=== PATIENT | male | born 1975 | race Caucasian/White ===

== ENCOUNTER 2017-03-29 22:44 | Emergency (ER) | payer MEDICAID ==
[2017-03-29 22:53] VITALS: BP 128/81
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
== END 2017-03-29 23:55 | disposition left against medical advice (07) ==
LOC: JP.ED 22:44
DX: T65.91XA Toxic effect of unspecified substance, accidental (unintentional), initial encounter (principal); F17.210 Nicotine dependence, cigarettes, uncomplicated
CPT/HCPCS: 99284

== ENCOUNTER 2018-12-19 21:22 | Emergency (ER) | payer SELFPAY ==
[2018-12-19 21:38] VITALS: BP 139/82; PULSE 82
[2018-12-19] MEDS ORDERED: HYDROmorphone 0.5 MG/0.5 ML Syringe IVPUSH ONE ×2 (21:51→22:52)
[2018-12-19] MEDS: Sodium Chloride 0.9% 10 ML Syringe FLUSH PRN ×2 (22:07→23:00)
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
[2018-12-19] MEDS ORDERED: Acetaminophen/oxyCODONE 325-10 MG Tab PO PRN (22:52)
[2018-12-19] MEDS ORDERED: Ketorolac 30 MG/ML SDV IVPUSH ONE (22:56)
--- NOTE | 2018-12-19 23:13 | CRLCR ---
Indication: Pain after fall Technique: Two views, 4 films Comparison: None Findings: Bones: Deformity of the lateral tibial plateau, partially included on the examination. Appearance is consistent with a plateau fracture. No femoral fracture seen. Joint spaces: Large knee effusion. Soft tissues: Mild anterior soft tissue swelling. Dictated by Dwight Liang MD @ Dec 19 2018 11:11PM Signed by Dr. Dwight Liang @ Dec 19 2018 11:12PM
--- NOTE | 2018-12-19 23:22 | CRLCR ---
Indication: Injury and pain Technique: Right knee 4 views Comparison: None Findings/Impression: Bones: Minimally depressed fracture is in the lateral tibial plateau. No other fracture or malalignment. Joint spaces: Traumatic joint effusion is present. Soft tissues: Unremarkable. Dictated by Andrea Ott MD @ Dec 19 2018 11:18PM Signed by Dr. Andrea Ott @ Dec 19 2018 11:20PM
== END 2018-12-19 23:58 | disposition home or self-care (01) ==
LOC: JP.ED 21:22
DX: S82.141A Displaced bicondylar fracture of right tibia, initial encounter for closed fracture (principal); F17.210 Nicotine dependence, cigarettes, uncomplicated; V86.39XA Unspecified occupant of other special all-terrain or other off-road motor vehicle injured in traffic accident, initial encounter
CPT/HCPCS: 73552; 73564; 96374; 96375; 96376; 99283; 99284; A9270; J1170; J1885

== ENCOUNTER 2019-01-31 12:29 | Emergency (ER) | payer MEDICAID, OTHER ==
[2019-01-31] MEDS ORDERED: Sodium Chloride 0.9% 10 ML Syringe FLUSH PRN (12:45)
[2019-01-31] MEDS ORDERED: Sodium Chloride 0.9% 1,000 ML IV ONE ×2 (12:46→13:34)
[2019-01-31] MEDS ORDERED: HYDROmorphone 0.5 MG/0.5 ML Syringe IVPUSH ONE (12:46)
[2019-01-31] MEDS ORDERED: Acetaminophen 325 MG Tab PO ONE (13:15)
[2019-01-31] MEDS ORDERED: cefTRIAXone 2 GM in Sodium Chloride 0.9% 50 ML IV ONE (13:16)
[2019-01-31] MEDS ORDERED: HYDROmorphone 1 MG/ML Syringe IVPUSH ONE (13:39)
--- NOTE | 2019-01-31 13:50 | EDM.PDOC ---
ED HPI GENERAL MEDICAL PROBLEM - General Chief Complaint: Lower Extremity Injury/Pain Stated Complaint: R LEG PAIN AND SWELLING Time Seen by Provider: 01/31/19 12:30 Source of Information: Reports: Patient History Limitations: Reports: No Limitations - History of Present Illness INITIAL COMMENTS - FREE TEXT/NARRATIVE: Keanu is a 43 year old male who presents to the ED today with c/o right knee pain, swelling and redness/warmth since this morning. Patient had a tibial plateau fracture that was repaired by ortho at [facility] a couple of weeks ago. Patient reports he has been doing fine until this morning. Patient arrives here moaning in pain, febrile and tachycardic. He is not currently on any antibiotics and took Ibuprofen last a few hours ago which did not help with his symptoms, any manipulation of his knee or ambulation causes significant pain. Onset: Today, Sudden Right Lower Leg Pain Score (Numeric/FACES): 10 - Related Data Allergies Allergy/AdvReac Type Severity Reaction Status Date / Time No Known Allergies Allergy Verified 01/31/19 13:35 Home Meds: Home Meds Naproxen [Naprosyn] 500 mg PO Q8HR PRN 5 Days #30 tablet 12/19/18 [Rx] Hydrocodone/Acetaminophen [Hydrocodon-Acetaminophen 5-325] 1 tab PO Q6H PRN [History] Past Medical History Cardiovascular History: Reports: Arrhythmia Genitourinary History: Reports: Renal Calculus Musculoskeletal History: Reports: Fracture Psychiatric History: Reports: Anxiety, Depression Endocrine/Metabolic History: Reports: Obesity/BMI 30+ - Infectious Disease History Infectious Disease History: Reports: Chicken Pox - Past Surgical History Musculoskeletal Surgical History: Reports: ORIF, Other (See Below) Other Musculoskeletal Surgeries/Procedures:: right foot surgery. left 1st finger Social & Family History - Tobacco Use Smoking Status *Q: Current Every Day Smoker Years of Tobacco use: 26 Packs/Tins Daily: 1 - Caffeine Use Caffeine Use: Reports: None - Recreational Drug Use Recreational Drug Use: No Review of Systems - Review of Systems Review Of Systems: ROS reveals no pertinent complaints other than HPI. ED EXAM, GENERAL - Physical Exam Exam: See Below Exam Limited By: No Limitations General Appearance: Alert, WD/WN, Moderate Distress Eye Exam: Bilateral Eye: EOMI Ears: Normal External Exam Nose: Normal Inspection Throat/Mouth: Normal Oropharynx Head: Atraumatic Neck: Normal Inspection Respiratory/Chest: No Respiratory Distress, Lungs Clear Cardiovascular: Normal Peripheral Pulses, Tachycardia Peripheral Pulses: 2+: Dorsalis Pedis (L), Dorsalis Pedis (R) GI/Abdominal: Normal Bowel Sounds, Soft Back Exam: Normal Inspection Extremities: Other (Right knee incision healing well, surrounding swelling, distal erythema and warmth around anterior knee, signficantly painful to touch, distal pulses and cap refill intact, no signs of compartment syndrome at this time.) Neurological: Alert, Oriented, CN II-XII Intact Psychiatric: Anxious Skin Exam: Erythema (right knee), Increased Warmth, Other Lymphatic: No Adenopathy Course - Vital Signs Last Recorded V/S: Last Vital Signs Temp 38.2 C H 01/31/19 13:11 Pulse 113 H 01/31/19 13:51 Resp 16 01/31/19 13:51 BP 144/64 H 01/31/19 13:51 Pulse Ox 94 L 01/31/19 13:51 Keanu is a 43 year old male, recent hx of Tibial Plateau Fracture repair at [facility], presents with significant pain, swelling, erythema to right knee that he noticed upon waking this morning. Please refer to HPI and focused exam. Patient arrives here tachycardic, febrile, significant pain on exam. Concern for hardware/joint infection and sepsis. No signs of compartment syndrome. Patient was given IV fluids, Dilaudid for pain. Blood work obtained including a set of blood cultures. Patient given Tylenol for his fever, blood work returns significant for a white count of 21.2, left shift, lactic acid of 3.1, gap of 15.7, alk phos of 117 and CRP of 2.77. Patient given 2 liters of NS and started on Rocephin and Vancomycin. I spoke with Dr. Calvert at [facility], hospitalist, as well as ortho, Dr. Sommers who have accepted patient for transfer. Patient will be started out in the ED. To remain NPO for now. Patient updated on results and plan of care and is agreeable, transferred in stable condition. - Orders/Labs/Meds Orders: Active Orders 24 hr Category Date Time Status Peripheral IV Care [RC] . DIRECTED Care 01/31/19 12:45 Active CULTURE BLOOD [BC] Urgent Lab 01/31/19 12:50 Received CULTURE BLOOD [BC] Urgent Lab 01/31/19 12:55 Received Sodium Chloride 0.9% [Normal Saline] 1,000 ml Med 01/31/19 13:34 Active IV .BOLUS Sodium Chloride 0.9% [Saline Flush] Med 01/31/19 12:45 Active 10 ml FLUSH ASDIRECTED PRN Vancomycin 2 gm Med 01/31/19 14:00 Active Sodium Chloride 0.9% [Normal Saline] 500 ml IV ONETIME fentaNYL [Sublimaze] Med 01/31/19 14:09 Once 50 mcg IVPUSH ONETIME ONE Blood Culture x2 Reflex Set [OM.PC] Urgent Oth 01/31/19 12:45 Ordered Peripheral IV Insertion Adult [OM.PC] Routine Oth 01/31/19 12:45 Ordered Medication Orders Sodium Chloride (Normal Saline) 1,000 mls @ 999 mls/hr IV .BOLUS ONE Stop: 01/31/19 14:34 Vancomycin HCl 2 gm/ Sodium (Chloride) 500 mls @ 250 mls/hr IV ONETIME ONE Stop: 01/31/19 15:59 Sodium Chloride (Saline Flush) 10 ml FLUSH ASDIRECTED PRN PRN Reason: Keep Vein Open Last Admin: 01/31/19 13:06 Dose: 10 ml Labs: Laboratory Tests 01/31/19 01/31/19 01/31/19 Range/Units 12:45 12:50 12:50 WBC 21.1 H (4.5-11.0) K/uL RBC 5.05 (4.30-5.90) M/uL Hgb 15.5 H (12.0-15.0) g/dL Hct 45.8 (40.0-54.0) % MCV 91 (80-98) fL MCH 31 (27-31) pg MCHC 34 (32-36) % Plt Count 334 (150-400) K/uL Neut % (Auto) 84 H (36-66) % Lymph % (Auto) 10 L (24-44) % Emmons % (Auto) 6 (2-6) % Eos % (Auto) 1 L (2-4) % Baso % (Auto) 0 (0-1) % Sodium 137 L (140-148) mmol/L Potassium 3.7 (3.6-5.2) mmol/L Chloride 101 (100-108) mmol/L Carbon Dioxide 24 (21-32) mmol/L Anion Gap 15.7 H (5.0-14.0) mmol/L BUN 9 (7-18) mg/dL Creatinine 0.8 (0.8-1.3) mg/dL Est Cr Clr Drug Dosing 125.50 mL/min Estimated GFR (MDRD) > 60 (>60) Glucose 95 (74-106) mg/dL Lactic Acid 3.1 H (0.4-2.0) mmol/L Calcium 9.2 (8.5-10.1) mg/dL Total Bilirubin 0.5 (0.2-1.0) mg/dL AST 12 L (15-37) U/L ALT 23 (12-78) U/L Alkaline Phosphatase 117 H (46-116) U/L C-Reactive Protein (0.0-0.3) mg/dL Total Protein 7.5 (6.4-8.2) g/dL Albumin 4.0 (3.4-5.0) g/dL Globulin 3.5 (2.3-3.5) g/dL Albumin/Globulin Ratio 1.1 L (1.2-2.2) 01/31/19 Range/Units 12:50 WBC (4.5-11.0) K/uL RBC (4.30-5.90) M/uL Hgb (12.0-15.0) g/dL Hct (40.0-54.0) % MCV (80-98) fL MCH (27-31) pg MCHC (32-36) % Plt Count (150-400) K/uL Neut % (Auto) (36-66) % Lymph % (Auto) (24-44) % Emmons % (Auto) (2-6) % Eos % (Auto) (2-4) % Baso % (Auto) (0-1) % Sodium (140-148) mmol/L Potassium (3.6-5.2) mmol/L Chloride (100-108) mmol/L Carbon Dioxide (21-32) mmol/L Anion Gap (5.0-14.0) mmol/L BUN (7-18) mg/dL Creatinine (0.8-1.3) mg/dL Est Cr Clr Drug Dosing mL/min Estimated GFR (MDRD) (>60) Glucose (74-106) mg/dL Lactic Acid (0.4-2.0) mmol/L Calcium (8.5-10.1) mg/dL Total Bilirubin (0.2-1.0) mg/dL AST (15-37) U/L ALT (12-78) U/L Alkaline Phosphatase (46-116) U/L C-Reactive Protein 2.77 H (0.0-0.3) mg/dL Total Protein (6.4-8.2) g/dL Albumin (3.4-5.0) g/dL Globulin (2.3-3.5) g/dL Albumin/Globulin Ratio (1.2-2.2) Meds: Medications Generic Name Dose Route Start Last Admin Trade Name Freq PRN Reason Stop Dose Admin Sodium Chloride 1,000 mls @ 999 mls/hr 01/31/19 13:34 Normal Saline IV 01/31/19 14:34 .BOLUS ONE Vancomycin HCl 2 gm/ Sodium 500 mls @ 250 mls/hr 01/31/19 14:00 Chloride IV 01/31/19 15:59 ONETIME ONE Sodium Chloride 10 ml 01/31/19 12:45 01/31/19 13:06 Saline Flush FLUSH 10 ml ASDIRECTED PRN Administration Keep Vein Open Discontinued Medications Generic Name Dose Route Start Last Admin Trade Name Freq PRN Reason Stop Dose Admin Acetaminophen 650 mg 01/31/19 13:15 01/31/19 13:34 Tylenol PO 01/31/19 13:16 650 mg NOW ONE Administration Hydromorphone HCl 0.5 mg 01/31/19 12:46 01/31/19 13:03 Dilaudid IVPUSH 01/31/19 12:47 0.5 mg ONETIME ONE Administration Hydromorphone HCl 1 mg 01/31/19 13:39 01/31/19 13:47 Dilaudid IVPUSH 01/31/19 13:40 1 mg ONETIME ONE Administration Sodium Chloride 1,000 mls @ 999 mls/hr 01/31/19 12:46 01/31/19 13:00 Normal Saline IV 01/31/19 13:46 999 mls/hr .BOLUS ONE Administration Ceftriaxone Sodium 2 gm/ 50 mls @ 100 mls/hr 01/31/19 13:16 10/21/19 13:34 Sodium Chloride IV 01/31/19 13:45 100 mls/hr ONETIME ONE Administration Vancomycin HCl 0 gm 01/31/19 14:00 Vancomycin IV 01/31/19 14:01 .PHARMACY TO DOSE MATTHEW Departure - Departure Time of Disposition: 15:00 Disposition: DC/Tfer to Acute Hospital 02 Condition: Serious Clinical Impression: Infection of knee Sepsis Qualifiers: Sepsis type: sepsis due to unspecified organism Sepsis acute organ dysfunction status: without acute organ dysfunction Qualified Code(s): A41.9 - Sepsis, unspecified organism - Discharge Information Referrals: PCP,None [Primary Care Provider] - Forms: ED Department Discharge - My Orders Last 24 Hours: My Active Orders 01/31/19 12:45 Peripheral IV Care [RC] . DIRECTED Sodium Chloride 0.9% [Saline Flush] 10 ml FLUSH ASDIRECTED PRN Blood Culture x2 Reflex Set [OM.PC] Urgent Peripheral IV Insertion Adult [OM.PC] Routine 01/31/19 12:50 CULTURE BLOOD [BC] Urgent 01/31/19 12:55 CULTURE BLOOD [BC] Urgent 01/31/19 13:34 Sodium Chloride 0.9% [Normal Saline] 1,000 ml IV .BOLUS 01/31/19 14:00 Vancomycin 2 gm Sodium Chloride 0.9% [Normal Saline] 500 ml IV ONETIME 01/31/19 14:09 fentaNYL [Sublimaze] 50 mcg IVPUSH ONETIME ONE - Assessment/Plan Last 24 Hours: My Active Orders 01/31/19 12:45 Peripheral IV Care [RC] . DIRECTED Sodium Chloride 0.9% [Saline Flush] 10 ml FLUSH ASDIRECTED PRN Blood Culture x2 Reflex Set [OM.PC] Urgent Peripheral IV Insertion Adult [OM.PC] Routine 01/31/19 12:50 CULTURE BLOOD [BC] Urgent 01/31/19 12:55 CULTURE BLOOD [BC] Urgent 01/31/19 13:34 Sodium Chloride 0.9% [Normal Saline] 1,000 ml IV .BOLUS 01/31/19 14:00 Vancomycin 2 gm Sodium Chloride 0.9% [Normal Saline] 500 ml IV ONETIME 01/31/19 14:09 fentaNYL [Sublimaze] 50 mcg IVPUSH ONETIME ONE
[2019-01-31 13:52] VITALS: BP 144/64; PULSE 113
[2019-01-31] MEDS ORDERED: Vancomycin 1 GM SDV IV SCH (14:00)
[2019-01-31] MEDS ORDERED: Vancomycin 2 GM in Sodium Chloride 0.9% 500 ML IV ONE (14:00)
[2019-01-31] MEDS ORDERED: fentaNYL 100 MCG/2 ML SDV IVPUSH ONE (14:09)
== END 2019-01-31 14:45 ==
LOC: JP.ED 12:29
DX: A41.9 Sepsis, unspecified organism (principal); M00.9 Pyogenic arthritis, unspecified; E66.9 Obesity, unspecified; F17.210 Nicotine dependence, cigarettes, uncomplicated; Z68.32 Body mass index [BMI] 32.0-32.9, adult
CPT/HCPCS: 36415; 80053; 83605; 85025; 86140; 87040; 96361; 96365; 96367; 96375; 96376; 99284; A9270; J0696; J1170; J3010; J3370; J7030; J7040; J7050

== ENCOUNTER 2019-02-10 11:31 | Emergency (ER) | payer MEDICAID, OTHER ==
[2019-02-10 11:56] VITALS: BP 116/67; PULSE 117
[2019-02-10] MEDS ORDERED: fentaNYL 100 MCG/2 ML SDV IVPUSH ONE (12:28)
--- NOTE | 2019-02-10 12:29 | EDM.PDOC ---
ED HPI GENERAL MEDICAL PROBLEM - General Chief Complaint: General Stated Complaint: PIC LINE ISSUES Time Seen by Provider: 02/10/19 12:00 Source of Information: Reports: Patient History Limitations: Reports: No Limitations - History of Present Illness INITIAL COMMENTS - FREE TEXT/NARRATIVE: 43-year-old male who was recently discharged from the hospital after incision and drainage of an infected postoperative right knee, had been doing well as an outpatient receiving IV Rocephin which she gives himself at home. Today he went into the clinic for a PICC line dressing change, and was found to have a low- grade fever. He felt chilled and was vomiting most of the night, orthopedics was consulted and he was sent to the emergency room for further evaluation. On arrival his temperature was 100.3, his nausea was improved but he had increased pain in his knee and he felt weak. Onset: Gradual (Over the past 12-24 hours) Associated Symptoms: Reports: Fever/Chills, Nausea/Vomiting, Weakness, Other ( Right knee pain has increased, but swelling has gone down) Right Knee Pain Score (Numeric/FACES): 8 - Related Data Allergies Allergy/AdvReac Type Severity Reaction Status Date / Time No Known Allergies Allergy Verified 02/10/19 11:52 Home Meds: Home Meds Hydrocodone/Acetaminophen [Hydrocodon-Acetaminophen 5-325] 1 tab PO Q6H PRN [History] Past Medical History Cardiovascular History: Reports: Arrhythmia Genitourinary History: Reports: Renal Calculus Musculoskeletal History: Reports: Arthritis, Fracture Neurological History: Reports: Concussion Psychiatric History: Reports: Anxiety, Depression, PTSD Endocrine/Metabolic History: Reports: Obesity/BMI 30+ - Infectious Disease History Infectious Disease History: Reports: Chicken Pox - Past Surgical History Head Surgeries/Procedures: Reports: None Cardiovascular Surgical History: Reports: None Endocrine Surgical History: Reports: None Neurological Surgical History: Reports: None Musculoskeletal Surgical History: Reports: ORIF, Other (See Below) Other Musculoskeletal Surgeries/Procedures:: right foot surgery. left 1st finger. tib/plat surgery has screws Dermatological Surgical History: Reports: None Social & Family History - Tobacco Use Smoking Status *Q: Current Every Day Smoker Years of Tobacco use: 25 Packs/Tins Daily: 1 Used Tobacco, but Quit: No Second Hand Smoke Exposure: Yes - Caffeine Use Caffeine Use: Reports: Coffee - Recreational Drug Use Recreational Drug Use: No ED ROS GENERAL - Review of Systems Review Of Systems: See Below Constitutional: Reports: Fever, Chills, Malaise HEENT: Reports: No Symptoms Respiratory: Denies: Shortness of Breath Cardiovascular: Denies: Chest Pain GI/Abdominal: Reports: Nausea, Vomiting. Denies: Abdominal Pain, Diarrhea : Reports: No Symptoms Musculoskeletal: Reports: Other (Increased right leg pain) Skin: Reports: Other (No erythema around the incisions) ED EXAM, GENERAL - Physical Exam Exam: See Below Exam Limited By: No Limitations General Appearance: Alert, No Apparent Distress, Other (Patient looks uncomfortable but not distressed) Eye Exam: Bilateral Eye: Normal Inspection (No jaundice) Head: Atraumatic Respiratory/Chest: No Respiratory Distress, Lungs Clear Cardiovascular: Regular Rate, Rhythm, Tachycardia GI/Abdominal: Non-Tender Extremities: Other (Recent surgery on the right knee reveals a small amount of swelling, healing incisions and some tenderness to palpation around the knee, it is not significantly warm or erythematous) Neurological: Alert, Oriented Skin Exam: Warm, Dry (Surgical incisions on the right knee look like they're healing appropriately. There is a very tiny area of granulomatous tissue coming through the incision, no other sign of drainage or abnormality) Course - Vital Signs Last Recorded V/S: Last Vital Signs Temp 101.6 F H 02/10/19 12:55 Pulse 117 H 02/10/19 11:54 Resp 16 02/10/19 11:54 BP 116/67 02/10/19 11:54 Pulse Ox 98 02/10/19 11:54 - Orders/Labs/Meds Orders: Active Orders 24 hr Category Date Time Status CULTURE BLOOD [BC] Urgent Lab 02/10/19 12:20 Received CULTURE BLOOD [BC] Urgent Lab 02/10/19 12:25 Received Blood Culture x2 Reflex Set [OM.PC] Urgent Oth 02/10/19 12:09 Ordered Labs: Laboratory Tests 02/10/19 02/10/19 02/10/19 Range/Units 12:20 12:20 13:05 WBC 10.2 (4.5-11.0) K/uL RBC 4.23 L (4.30-5.90) M/uL Hgb 13.0 D (12.0-15.0) g/dL Hct 39.1 L (40.0-54.0) % MCV 92 (80-98) fL MCH 31 (27-31) pg MCHC 33 (32-36) % Plt Count 516 H (150-400) K/uL Neut % (Auto) 77 H (36-66) % Lymph % (Auto) 19 L (24-44) % [place] % (Auto) 3 (2-6) % Eos % (Auto) 1 L (2-4) % Baso % (Auto) 0 (0-1) % Sodium 138 L (140-148) mmol/L Potassium 3.8 (3.6-5.2) mmol/L Chloride 101 (100-108) mmol/L Carbon Dioxide 28 (21-32) mmol/L Anion Gap 12.8 (5.0-14.0) mmol/L BUN 15 D (7-18) mg/dL Creatinine 0.8 (0.8-1.3) mg/dL Est Cr Clr Drug Dosing 125.50 mL/min Estimated GFR (MDRD) > 60 (>60) Glucose 94 (74-106) mg/dL Lactic Acid 1.4 (0.4-2.0) mmol/L Calcium 9.0 (8.5-10.1) mg/dL Total Bilirubin 0.3 (0.2-1.0) mg/dL AST 16 (15-37) U/L ALT 21 (12-78) U/L Alkaline Phosphatase 84 (46-116) U/L C-Reactive Protein (0.0-0.3) mg/dL Total Protein 7.3 (6.4-8.2) g/dL Albumin 3.0 L (3.4-5.0) g/dL Globulin 4.3 H (2.3-3.5) g/dL Albumin/Globulin Ratio 0.7 L (1.2-2.2) 02/10/19 Range/Units 13:05 WBC (4.5-11.0) K/uL RBC (4.30-5.90) M/uL Hgb (12.0-15.0) g/dL Hct (40.0-54.0) % MCV (80-98) fL MCH (27-31) pg MCHC (32-36) % Plt Count (150-400) K/uL Neut % (Auto) (36-66) % Lymph % (Auto) (24-44) % [place] % (Auto) (2-6) % Eos % (Auto) (2-4) % Baso % (Auto) (0-1) % Sodium (140-148) mmol/L Potassium (3.6-5.2) mmol/L Chloride (100-108) mmol/L Carbon Dioxide (21-32) mmol/L Anion Gap (5.0-14.0) mmol/L BUN (7-18) mg/dL Creatinine (0.8-1.3) mg/dL Est Cr Clr Drug Dosing mL/min Estimated GFR (MDRD) (>60) Glucose (74-106) mg/dL Lactic Acid (0.4-2.0) mmol/L Calcium (8.5-10.1) mg/dL Total Bilirubin (0.2-1.0) mg/dL AST (15-37) U/L ALT (12-78) U/L Alkaline Phosphatase (46-116) U/L C-Reactive Protein 7.03 H (0.0-0.3) mg/dL Total Protein (6.4-8.2) g/dL Albumin (3.4-5.0) g/dL Globulin (2.3-3.5) g/dL Albumin/Globulin Ratio (1.2-2.2) Meds: Medications Discontinued Medications Generic Name Dose Route Start Last Admin Trade Name Freq PRN Reason Stop Dose Admin Fentanyl 50 mcg 02/10/19 12:28 02/10/19 12:33 Sublimaze IVPUSH 02/10/19 12:29 50 mcg ONETIME ONE Administration Sodium Chloride 1,000 mls @ 500 mls/hr 02/10/19 13:45 02/10/19 13:42 Normal Saline IV 500 mls/hr [facility]RECTED [facility] Administration - Re-Assessments/Exams Free Text/Narrative Re-Assessment/Exam: 02/10/19 13:36 CBC revealed a normal white count. CMP was also normal. Patient was given 50 g of fentanyl through PICC line, and blood cultures were obtained. Orthopedics wanted the patient admitted for observation, and arrangements were made for him to be sent to [place] for admission. Lactic acid was 1.4, CRP elevated at 7.03. Patient was agreeable to this plan. Departure - Departure Time of Disposition: 14:01 Disposition: Home, Self-Care 01 Clinical Impression: Fever Qualifiers: Fever type: unspecified Qualified Code(s): R50.9 - Fever, unspecified Nausea & vomiting Qualifiers: Vomiting Intractability: non-intractable - Discharge Information Referrals: PCP,None [Primary Care Provider] - Forms: ED Department Discharge Care Plan Goals: Blood cultures are pending. Patient will be sent to [place] for admission due to the recent complicated right knee surgery. - My Orders Last 24 Hours: My Active Orders 02/10/19 12:09 Blood Culture x2 Reflex Set [OM.PC] Urgent 02/10/19 12:20 CULTURE BLOOD [BC] Urgent 02/10/19 12:25 CULTURE BLOOD [BC] Urgent - Assessment/Plan Last 24 Hours: My Active Orders 02/10/19 12:09 Blood Culture x2 Reflex Set [OM.PC] Urgent 02/10/19 12:20 CULTURE BLOOD [BC] Urgent 02/10/19 12:25 CULTURE BLOOD [BC] Urgent
[2019-02-10] MEDS ORDERED: Sodium Chloride 0.9% 1,000 ML IV SCH (13:45)
== END 2019-02-10 14:13 | disposition home or self-care (01) ==
LOC: JP.ED 11:31
DX: R50.9 Fever, unspecified (principal); R11.2 Nausea with vomiting, unspecified; E66.9 Obesity, unspecified; Z68.33 Body mass index [BMI] 33.0-33.9, adult; F17.210 Nicotine dependence, cigarettes, uncomplicated
CPT/HCPCS: 36415; 80053; 83605; 85025; 86140; 87040; 96374; 99284; J3010; J7030

== ENCOUNTER 2019-03-04 21:41 | Emergency (ER) | payer MEDICAID ==
[2019-03-04 21:56] VITALS: BP 129/87; PULSE 106
--- NOTE | 2019-03-04 22:13 | EDM.PDOC ---
ED HPI GENERAL MEDICAL PROBLEM - General Chief Complaint: General Stated Complaint: PIC LINE Time Seen by Provider: 03/04/19 22:12 Source of Information: Reports: Patient, Family, RN Notes Reviewed History Limitations: Reports: No Limitations - History of Present Illness INITIAL COMMENTS - FREE TEXT/NARRATIVE: 43-year-old gentleman presents emergency department today with problems with his PICC line the end part of the swaged lock fits on has broken off PICC line is located in his right arm - Related Data Allergies Allergy/AdvReac Type Severity Reaction Status Date / Time No Known Allergies Allergy Verified 03/04/19 22:04 Home Meds: Home Meds . [Unable to Verify Home Med List] 03/04/19 [History] Past Medical History Cardiovascular History: Reports: Arrhythmia Genitourinary History: Reports: Renal Calculus Musculoskeletal History: Reports: Arthritis, Fracture Neurological History: Reports: Concussion Psychiatric History: Reports: Anxiety, Depression, PTSD Endocrine/Metabolic History: Reports: Obesity/BMI 30+ - Infectious Disease History Infectious Disease History: Reports: Chicken Pox - Past Surgical History Head Surgeries/Procedures: Reports: None Cardiovascular Surgical History: Reports: None Endocrine Surgical History: Reports: None Neurological Surgical History: Reports: None Musculoskeletal Surgical History: Reports: ORIF, Other (See Below) Other Musculoskeletal Surgeries/Procedures:: right foot surgery. left 1st finger. tib/plat surgery has screws Dermatological Surgical History: Reports: None Social & Family History - Tobacco Use Smoking Status *Q: Current Every Day Smoker Years of Tobacco use: 25 Packs/Tins Daily: 1 - Caffeine Use Caffeine Use: Reports: Coffee - Recreational Drug Use Recreational Drug Use: No ED ROS GENERAL - Review of Systems Review Of Systems: See Below Constitutional: Reports: No Symptoms ED EXAM, GENERAL - Physical Exam Exam: See Below Free Text/Narrative:: Examination of the PICC line the suede lock is broken off PICC line nurse has been contacted she will try and repair or replace Exam Limited By: No Limitations General Appearance: Alert, WD/WN, No Apparent Distress Course - Vital Signs Last Recorded V/S: Last Vital Signs Temp 98.5 F 03/04/19 22:02 Pulse 106 H 03/04/19 22:02 Resp 16 03/04/19 22:02 BP 129/87 03/04/19 22:02 Pulse Ox 97 03/04/19 22:02 - Orders/Labs/Meds Orders: Active Orders 24 hr Category Date Time Status Chest 1V Frontal [CR] Urgent Exams 03/04/19 22:46 Ordered Departure - Departure Time of Disposition: 22:56 Disposition: Home, Self-Care 01 Condition: Good Clinical Impression: Occluded PICC line Qualifiers: Encounter type: initial encounter Qualified Code(s): T82.898A - Other specified complication of vascular prosthetic devices, implants and grafts, initial encounter - Discharge Information Instructions: PICC Home Care Guide Referrals: Tristen Longoria MD [Primary Care Provider] - Forms: ED Department Discharge Additional Instructions: Follow-up with primary care as needed continue with regular medications, call or return to the emergency department with any new symptomology - My Orders Last 24 Hours: My Active Orders 03/04/19 22:46 Chest 1V Frontal [CR] Urgent - Assessment/Plan Last 24 Hours: My Active Orders 03/04/19 22:46 Chest 1V Frontal [CR] Urgent Plan: Assessment Acuity = acute Site and laterality = PICC line dysfunction Etiology = unknown Manifestations = none Location of injury = Home Lab values = chest x-ray reveals adequate PICC line placement official read radiologist pending Plan Discharged home continue with regular medications follow-up with primary care as needed This note was dictated using [employer] voice recognition software please call with any questions on syntax or grammar.
--- NOTE | 2019-03-04 23:27 | CRLCR ---
INDICATION: Assess PICC line placement. TECHNIQUE: One-view. IMPRESSION: Right-sided PICC line tip is upper superior vena cava roughly at the azygos insertion level. No other significant finding. Dictated by Donovan Reveles MD @ Mar 04 2019 11:27PM Signed by Dr. Donovan Reveles @ Mar 04 2019 11:27PM
== END 2019-03-04 23:10 | disposition home or self-care (01) ==
LOC: JP.ED 21:41
DX: T82.898A Other specified complication of vascular prosthetic devices, implants and grafts, initial encounter (principal); E66.9 Obesity, unspecified; Z68.32 Body mass index [BMI] 32.0-32.9, adult
CPT/HCPCS: 71045; 99282; 99283-25